=== PATIENT | male | born 1980 | race Caucasian/White ===

== ENCOUNTER 2021-07-14 21:22 | Emergency (ER) | payer OTHER ==
[~2021-07-14] VITALS: Ht 175.3 cm; Wt 75.3 kg
== END 2021-07-14 23:06 | disposition home or self-care (01) ==
LOC: ER 21:22
DX: S61.210A Laceration without foreign body of right index finger without damage to nail, initial encounter (principal); Z23 Encounter for immunization; W26.0XXA Contact with knife, initial encounter; Y92.9 Unspecified place or not applicable
CPT/HCPCS: 90714

== ENCOUNTER 2023-05-01 09:42 | Day surgery (SDC) | payer OTHER ==
[~2023-05-01] VITALS: Ht 175.3 cm; Wt 74.5 kg
[~2023-05-01 09:42] MED LIST: Ropivacaine 0.5% HCl/Pf 5 MG/ML 20ML VIAL ONE
[2023-05-01] MEDS ORDERED: Dexmedetomidine HCL 200 MCG / 2 ML ONE (09:51)
[2023-05-01] MEDS ORDERED: propofoL 100 ML IV ONE (09:51)
[2023-05-01] MEDS ORDERED: Rocuronium Bromide 10 MG/ML 5ML Injection IV ONE (09:56)
[2023-05-01] MEDS ORDERED: Dexamethasone Sod Phos 10 MG/ML 1ML VIAL ONE (09:56)
[2023-05-01] MEDS ORDERED: Ondansetron HCl 2 MG / ML 2ML Vial ONE (09:56)
[2023-05-01] MEDS ORDERED: Bupivacaine 0.5% HCl 5 MG/ML 30MLVIAL ONE (09:56)
[2023-05-01] MEDS ORDERED: propofoL 0 ML IV ONE (09:57)
[2023-05-01] MEDS ORDERED: FentaNYL Citrate 50 MCG/ML 2 ML Injection ONE (09:57)
--- NOTE | 2023-05-01 10:45 | NUR ---
05/01/23 1045 Delicia Tatum CASE CANCELLED BY ANESTHESIA. CONSULTED WITH PATIENT ABOUT SYMPTOMS HE WAS HAVING ON 04/30/23 THAT INCLUDED A FEVER, COUGH, SORE THROAT AND MADE THE DECISION TO CANCEL.
== END 2023-05-01 10:58 | disposition home or self-care (01) ==
LOC: ORSCSDS 09:42
DX: S86.012A Strain of left Achilles tendon, initial encounter (principal); Z53.9 Procedure and treatment not carried out, unspecified reason
CPT/HCPCS: J1100; J2405; J2704; J2795; J3010

== ENCOUNTER 2023-05-08 06:09 | Day surgery (SDC) | payer OTHER ==
[~2023-05-08] VITALS: Ht 175.3 cm; Wt 74.3 kg
[~2023-05-08 06:09] MED LIST changes: +Lactated Ringer's 1,000 ML IV ONE; -Ropivacaine 0.5% HCl/Pf 5 MG/ML 20ML VIAL ONE
[2023-05-08] MEDS ORDERED: Lactated Ringer's 1,000 ML IV ONE ×3 (06:30→09:05)
[2023-05-08] MEDS ORDERED: Ropivacaine 0.5% HCl/Pf 5 MG/ML 20ML VIAL ONE (06:41)
[2023-05-08] MEDS ORDERED: FentaNYL Citrate 50 MCG/ML 2 ML Injection ONE (07:17)
[2023-05-08] MEDS ORDERED: Bupivacaine 0.5% HCl 5 MG/ML 30MLVIAL ONE (07:18)
[2023-05-08] MEDS ORDERED: Clindamycin 900mg in D5W 50ML 50 ML IV ONE (07:23)
[2023-05-08] MEDS ORDERED: Ondansetron HCl 2 MG / ML 2ML Vial ONE ×2 (07:35→09:13)
[2023-05-08] MEDS ORDERED: Rocuronium Bromide 10 MG/ML 5ML Injection IV ONE ×2 (07:35→09:13)
[2023-05-08] MEDS ORDERED: Dexamethasone Sod Phos 10 MG/ML 1ML VIAL ONE ×2 (07:35→09:13)
[2023-05-08] MEDS ORDERED: propofoL 20 ML IV ONE (07:35)
--- NOTE | 2023-05-08 07:40 | NUR ---
05/08/23 0740 Umm Tang TIME OUT WITH DR AGRAWAL PRIOR TO POPLITEAL BLOCK DONE AT BEDSIDE AT 0726. DR AGRAWAL THAN PROCEEDED WITH POPLITEAL BLOCK. PT TOLERATED PROCEDURE WITHOUT ANY DIFFICULTIES. SPO2 MONITORED T/O BLOCK AND MAINTAINED AT 100%.
[2023-05-08] MEDS ORDERED: EPINEPhrine HCl 1 MG/ML 1ML Amp XX ONE (08:02)
[2023-05-08] MEDS ORDERED: Sugammadex Sodium 200 MG/2ML SDV (100 MG/ML) ONE (08:43)
[2023-05-08 09:26] VITALS: BP 127/70
--- NOTE | 2023-05-08 10:12 | NUR ---
05/08/23 [email or web address] Delicia Tatum RN WENT OVER DISCHARGE INSTRUCTIONS WITH PATIENT.
== END 2023-05-08 10:08 | disposition home or self-care (01) ==
LOC: ORSCSDS 06:09
DX: S86.012A Strain of left Achilles tendon, initial encounter (principal); Z53.9 Procedure and treatment not carried out, unspecified reason
CPT/HCPCS: C1713; J0171; J1100; J2405; J2704; J2795; J3010; J7120